=== PATIENT | male | born 1970 | race Two or more races ===

== ENCOUNTER → 2024-12-06 | Emergency (ER) | payer OTHER ==
[~2024-12-06] MED LIST: CYMBALTA60 MG; DIOVAN40 MG; GLIPIZIDE10 MG/BOT1; JANUMET 50-1,1 UDTAB; LANTUS100 U/ML; METFORMIN HCL500 MG
== END | disposition left against medical advice (07) ==
LOC: ER 12:42
DX: Z53.21 Procedure and treatment not carried out due to patient leaving prior to being seen by health care provider (principal)